=== PATIENT | female | born 1990 | race Caucasian/White ===

== ENCOUNTER 2018-11-01 03:50 | Inpatient (IN) | payer OTHER ==
[~2018-11-01] VITALS: Ht 175.3 cm; Wt 86.1 kg
[~2018-11-01 03:50] MED LIST: IBUP600 PO; TRAM50 PO
--- NOTE | 2018-11-01 08:49 | NUR ---
0345 pt arrived to L&D via ambulance having delivered @ home around 0215 today. Baby in arms in a wet bath towel. taken and pt transferred to bed, by kosher sealer. Pt states she only knew she was for like 6 weeks. No active vaginal bleeding noted. IV in LAC infusing slowly. Fundus firm, scant vaginal drainage noted. Pt states wants to bottle feed infant. Denies any usage of street drugs. No family present.
[2018-11-01 09:31] LABS: BASOPHILS ABSOLUTE AUTO 0.03 K/mm3 (0.00-0.23); BASOPHILS PERCENT AUTO 0 % (0-2); EOSINOPHILS ABSOLUTE AUTO 0.03 K/mm3 (0.00-0.68); EOSINOPHILS PERCENT AUTO 0 % (0-6); Hematocrit 22.6 % (33.0-51.0); Hemoglobin 7.2 g/dL (11.5-16.0); IMMATURE GRAN ABSOLUTE AUTO 0.06 K/mm3 (0.00-0.10); IMMATURE GRAN PERCENT AUTO 1 % (0-1); LYMPHOCYTES ABSOLUTE AUTO 2.44 K/mm3 (0.84-5.20); LYMPHOCYTES PERCENT AUTO 22 % (21-46); MONOCYTES PERCENT AUTO 5 % (4-13); Mean Corpuscular HGB 27.1 pg (26.0-34.0); Mean Corpuscular HGB Conc 31.9 g/dL (31.5-36.5); Mean Corpuscular Volume 85 fL (80-100); Mean Platelet Volume 12.5 fL (9.1-12.4); NEUTROPHILS ABSOLUTE AUTO 7.92 K/mm3 (1.96-9.15); NEUTROPHILS PERCENT AUTO 72 % (41-73); Platelet Count 106 K/mm3 (150-400); RDW Coefficient Variation 13.8 % (11.7-14.2); RDW Standard Deviation 42.1 fL (35.1-46.3); Red Blood Cell Count 2.66 M/mm3 (3.80-5.20); White Blood Cell Count 10.98 K/mm3 (4.00-11.30)
--- NOTE | 2018-11-01 09:38 | NUR ---
[facility] AT 0745 ASSUMED CARE. PATIENT AMBULATED TO SHOWER WITHOUT PROBLEM. UTOX NEEDED AND PATIENT STATES SHE STILL CANT VOID. WILL CALL WHEN WANTING TO TRY AGAIN. PT CONITNUES TO DECLINE HER OB PANEL LABS. STATES SHE HAS JUST HEARD BAD THINGS ABOUT [facility] AND JUST REALLY WANTS TO MAYBE GET LABS A DIFFERENT DAY IN [place]. EXPLAINED WHAT LABS WE NEEDED WITH HER HISTORY OF NO CARE AND WHY. SHE DID CONSENT TO BABY LABS. STATES SHE HAD WANTED TO DELIVER IN [place] BC SHE DIDNT HAVE A GOOD EXPERIENCE WITH HER LAST BABY 2 YEARS AGO. STATES SHE SAW DR GRANT WITH HER LAST BABY AND HER 2 CHILDREN DO LIVE WITH HER SHE STATES. WILL CALL OFFICE FOR LAST RECORDS AT [facility] OFFICE.
--- NOTE | 2018-11-01 09:42 | NUR ---
LABS DR CAAL AT BEDSIDE AT 0830 AND AGAIN DISCUSSED ABOUT HER LABS AND WHY ITS IMPORTANT AND BABY LABS. AT THIS TIME SHE DOES CONSENT FOR HER LABS. LAB CALLED TO COME.
--- NOTE | 2018-11-01 10:04 | NUR ---
utox PT STILL STATES SHE DOESNT WANT TO GET UP AND VOID. EXPLAINED DOCTOR MAY HAVE ME PUT IN A CATHETER IF ITS BEEN THAT LONG. NOW STATES SHE DID GET UP AND VOID AROUND 06 AM.
[2018-11-01] MEDS ORDERED: PRENATAL TABLE1 EAC2 PO (10:06)
--- NOTE | 2018-11-01 12:12 | NUR ---
[facility] DROPPED OFF LUNCH TRAY IN ROOM. PATIENT STATES SHE TRIED CALLING ME TWICE AND I NEVER CAME SO SHE GOT UP AND WENT TO THE BATHROOM. SHE STATES SHE PUSHED THE CALLLIGHT ON THE BED WHICH DOESNT WORK. SHOWED HER THE CORRECT CALL LIGHT AND WILL CALL WITH NEXT VOID. LOOKING IN THE BATHROOM I NOTED UTOX CUP WAS COVERED UP WITH A WASHCLOTH WHICH WASNT LIKE THAT BEFORE. LAYING IN BED HOLDING BABY IN DARK ROOM A LONE. HAVENT SEEN FOB YET WHICH SHE SAID IS IN [place] AND SHOULD BE COMING TODAY- [facility].
--- NOTE | 2018-11-01 14:06 | NUR ---
[facility] SAT DOWN AND TALKED TO PATIENT ABOUT IT BEING PROTOCOL TO CALL [facility] WITH NO CARE. TOLD PATIENT THAT THEY WILL BE COMING TO TALK WITH HER SO ITS REALLY IMPORTANT TO BE OPEN AND HONEST. PT STILL NOT WANTING TO GET UP TO VOID AGAIN. EXPLAINED THAT IT IS REALLY IMPORTANT THAT THEY GET A SAMPLE AND IT WOULD NOT BE IN HER FAVOR TO KEEP AVOIDING IT. PT DIDNT OPEN UP ABOUT ANYTHING NEW.
--- NOTE | 2018-11-01 15:38 | NUR ---
[facility]- PT APPEARS TO BE DOING WELL AFTER [facility] WAS HERE. IN ROOM ALONE CARING FOR SELF AND BABY INDEPENDANTLY. AMBULATING IN ROOM. LOCHIA REMAINS SCANT. NO COMPLAINTS.
--- NOTE | 2018-11-01 19:02 | NUR ---
[facility] URINE FINALLY COLLECTED AND SEND TO LAB.
--- NOTE | 2018-11-01 19:02 | NUR ---
[facility] FOB ARRIVED FROM [place] AND AT BEDSIDE. PARENTS ARE CARING APPROPRIATELY AND INDEPENDANTLY FOR .
[2018-11-01 19:16] LABS: U Amphetamine Screen DETECTED; U Barbituate Screen Not Detected; U Benzodiazapine Screen Not Detected; U Buprenorphine Screen Not Detected; U Cannabinoids Screen DETECTED; U Cocaine Screen Not Detected; U Methadone Screen Not Detected; U Methamphetamine Screen DETECTED; U Opiates Screen Not Detected; U Oxycodone Screen Not Detected; U Phencyclidine Screen Not Detected; U Propoxyphene Screen Not Detected
[2018-11-02 04:07] LABS: HBSAG SCREEN Negative (Negative); HIV SCREEN 4TH GENERATION WRFX Non Reactive (Non Reactive)
[2018-11-02 06:03] LABS: BASOPHILS ABSOLUTE AUTO 0.03 K/mm3 (0.00-0.23); BASOPHILS PERCENT AUTO 1 % (0-2); EOSINOPHILS PERCENT AUTO 2 % (0-6); Hematocrit 19.4 % (33.0-51.0); Hemoglobin 6.2 g/dL (11.5-16.0); IMMATURE GRAN ABSOLUTE AUTO 0.04 K/mm3 (0.00-0.10); IMMATURE GRAN PERCENT AUTO 1 % (0-1); LYMPHOCYTES ABSOLUTE AUTO 2.29 K/mm3 (0.84-5.20); LYMPHOCYTES PERCENT AUTO 35 % (21-46); MONOCYTES ABSOLUTE AUTO 0.36 K/mm3 (0.16-1.47); MONOCYTES PERCENT AUTO 6 % (4-13); Mean Corpuscular HGB 27.8 pg (26.0-34.0); Mean Corpuscular Volume 87 fL (80-100); Mean Platelet Volume 12.6 fL (9.1-12.4); NEUTROPHILS ABSOLUTE AUTO 3.78 K/mm3 (1.96-9.15); NEUTROPHILS PERCENT AUTO 57 % (41-73); NRBC ABSOLUTE 0.02 K/mm3 (0.00-0.02); NRBC Auto 0.3 /100 WBC (0.0-0.2); Platelet Count 83 K/mm3 (150-400); RDW Standard Deviation 43.4 fL (35.1-46.3); Red Blood Cell Count 2.23 M/mm3 (3.80-5.20)
--- NOTE | 2018-11-03 08:36 | NUR ---
Trash and Linen removed from room.
--- NOTE | 2018-11-03 15:14 | NUR ---
PT DISCHARGED HOME WITH SISTER, SO AND NB. DISCHARGE INSTRUCTIONS REVIEWED WITH PT, PT VERBALIZED UNDERSTANDING AND DENIES ANY FURTHER QUESTIONS OR CONCERNS. PRESCRIPTION FOR IBUPROFEN GIVEN. PT AMBULATORY TO CAR.
== END 2018-11-03 13:34 | disposition home or self-care (01) | DRG 833 ==
LOC: BC 03:50 → OBS 03:50 → BC 04:03
PROVIDERS: Nurse Practitioner Obstetrics & Gynecology; ADMIT Pediatrics
DX: O62.3 Precipitate labor (principal); O90.81 Anemia of the puerperium; O99.334 Smoking (tobacco) complicating childbirth; Z3A.00 Weeks of gestation of pregnancy not specified
CPT/HCPCS: 36415; 85025; 86592; 86762; 86850; 87340; 87389; 90471; 90707; A9270; G0480; J1885